=== PATIENT | female | born 1965 | race African-American/Black ===

== ENCOUNTER 2017-02-22 12:53 | Emergency (ER) | payer MEDICAID, OTHER ==
[~2017-02-22] VITALS: Ht 157.5 cm; Wt 73.0 kg
[~2017-02-22 12:53] MED LIST: AMLODIPINE; HYDROCHLOROTHIAZIDE
[2017-02-22 12:58] VITALS: BP 110/74
== END 2017-02-22 15:08 | disposition left against medical advice (07) ==
LOC: ER 13:30
DX: Z53.21 Procedure and treatment not carried out due to patient leaving prior to being seen by health care provider (principal)
CPT/HCPCS: 93005